=== PATIENT | female | born 1950 | race Caucasian/White ===

== ENCOUNTER → 2017-11-07 | Outpatient (CLI) | payer MEDICARE ==
[~2017-11-07] MED LIST: CITA10SO PO; FISH1000 PO; LEVO.1 PO; PREV30CA36 PO; TIZA2CAP PO; VITA400C28 PO
--- NOTE | 2017-11-11 10:15 | RSPPFT ---
DATE OF PROCEDURE: 11/07/17 COMMENTS: VOLUMES DYNAMIC: FVC and FEV1 normal. STATIC: FRC, RV and TLC normal. FLOWS: FEV1% normal; FEF 25-75 normal. DIFFUSION: Low normal. FLOW VOLUME LOOP: Normal configuration. IMPRESSION: Essentially normal pulmonary functions. No significant airways obstruction or restriction. Low normal diffusion and no significant response to bronchodilator.
== END ==
LOC: HRSP 09:50
PROVIDERS: ATTEND Internal Medicine
DX: R05 Cough (principal)
CPT/HCPCS: 94060; 94618; 94726; 94729; 95012